=== PATIENT | male | born 1995 | race Caucasian/White ===

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

== ENCOUNTER 2017-06-24 01:40 | Emergency (ER) | payer OTHER ==
[~2017-06-24] VITALS: Ht 170.2 cm; Wt 65.0 kg
[~2017-06-24 01:40] MED LIST changes: +D-ME473S2 PO; +DICL100G37 TOP; +NAPR-260 PO; +PSEU30TA38 PO
[2017-06-24 01:43] VITALS: Ht 170.2 cm; Wt 65.0 kg
[2017-06-24] MEDS ORDERED: SULF1TAB31 PO (03:53)
[2017-06-24] MEDS ORDERED: CEPH-443 PO (03:53)
--- NOTE | 2017-06-24 04:12 | ERD ---
ER Documentation Chief Complaint Date/Time DATE: 06/24/17 TIME: 04:10 Chief Complaint rash to face for 4 days that is itchy HPI 22-year-old male presents to emergency department for complaints of rash itching bumps in the facial area after shaving 4 days ago. Patient complains of some pain, burning pain, 4/10 scale, accompanied with itching. Patient denies any fever or chills. Patient denies any discharge coming from the area. Patient denies any rash in other parts of the body. ROS All systems reviewed and are negative except as per history of present illness. Medications Home Meds Active Scripts Cephalexin* (Keflex*) 500 Mg Capsule, 500 MG PO QID for 10 Days, CAP Prov:TAYLOR GARCIA NP 06/24/17 Sulfamethoxazole/Trimethoprim* (Bactrim Ds* Tablet) 1 Each Tablet, 1 TAB PO BID , #20 TAB Prov:TAYLOR GARCIA NP 06/24/17 Fluticasone Propionate (Flonase Allergy Relief) 9.9 Ml [place].susp, 1 SPRAY NASAL DAILY, #1 BOTTLE TO EACH NOSTRIL Prov:ANGELA SIMPSON PA-C 11/03/16 Pseudoephedrine Hcl* (Pseudoephedrine Hcl*) 30 Mg Tablet, 30 MG PO Q6 Y for CONGESTION, #30 TAB Prov:ANGELA SIMPSON PA-C 11/03/16 Dextromethorphan Hb-Promethazine Hcl* (Promethazine DM* Syrup) 473 Ml Syrup, 5 ML PO Q6 Y for COUGH, #100 ML Prov:ANGELA SIMPSON PA-C 11/03/16 Diclofenac Sodium* (Voltaren* Gel) 1% -100 Gm Gel, 4 GM TOP QID, #1 TUB Prov:ANGELA SIMPSON PA-C 11/03/16 Naproxen* (Naprosyn*) 500 Mg Tablet, 500 MG PO BID Y for PAIN AND/OR INFLAMMATION, #30 TAB Prov:ANGELA SIMPSON PA-C 11/03/16 Fluticasone Propionate (Flonase Allergy Relief) 9.9 Ml [place].susp, 2 SPRAY NASAL DAILY, #1 BOTTLE TO EACH NOSTRIL Prov:PROUSE,NIKI Andrade PA-C 07/13/16 Guaifenesin-Dextromethorphan* (Robitussin* DM) 100MG/10MG/5ML Syrup, 10 ML PO Q4H Y for COUGH for 7 Days, ML Prov:ADELEKENNETHNIKIOLAYINKA [facility] 07/13/16 Cetirizine Hcl* (Zyrtec*) 10 Mg Capsule, 10 MG PO DAILY, #14 TAB.CHEW Prov:NIKI ANGULO PA-C 07/13/16 Azithromycin* (Zithromax*) 250 Mg Tablet, 250 MG PO .ZPACK DIRECTED, #6 TAB TAKE 500 MG (2 TABS) THE FIRST DAY THEN 250 MG (1 TAB) DAYS 2-5 Prov:NIKI ANGULO PA-C 07/13/16 Ibuprofen* (Motrin*) 600 Mg Tab, 600 MG PO Q6H Y for PAIN AND OR ELEVATED TEMP, #30 TAB Prov:CONNOR CHANEL MD 07/10/16 Allergies Allergies: Coded Allergies: No Known Drug Allergies (Verified Allergy, Mild, 07/13/16) PMhx/Soc Medical and Surgical Hx: pt denies Medical Hx, pt denies Surgical Hx History of Surgery: No Anesthesia Reaction: No Hx Neurological Disorder: No Hx Respiratory Disorders: No Hx Cardiac Disorders: No Hx Psychiatric Problems: No Hx Miscellaneous Medical Probl: No Hx Alcohol Use: No Hx Substance Use: No Hx Tobacco Use: No Smoking Status: Never smoker FmHx Family History: No coronary disease, No diabetes, No other Physical Exam Vitals Vital Signs Date Time Temp Pulse Resp B/P Pulse Ox O2 Delivery O2 Flow Rate FiO2 06/24/17 01:43 98.3 51 16 112/58 98 Physical Exam GENERAL: The patient is well developed and appropriate for usual state of health, in no apparent distress. CHEST: Clear to auscultation bilaterally. There are no rales, wheezes or rhonchi. HEART: Regular rate and rhythm. No murmurs, clicks, rubs or gallops. No S3 or S4. ABDOMEN: Soft, nontender and nondistended. Good bowel sounds. No rebound or guarding. No gross peritonitis. No gross organomegaly or masses. No Marin sign or McBurney point tenderness. BACK: No midline or flank tenderness. EXTREMITIES: Equal pulses bilaterally. There is no peripheral clubbing, cyanosis or edema. No focal swelling or erythema. Full range of motion. Grossly neurovascularly intact. NEURO: Alert and oriented. Cranial nerves 2-12 intact. Motor strength in all 4 extremities with 5/5 strength. Sensation grossly intact. Normal speech and gait. SKIN: Pustular rash noted in the lower chin area. There is no apparent ecchymosis or petechia. The skin is warm and dry. HEMATOLOGIC AND LYMPHATIC: There is no evidence of excessive bruising or lymphedema. No gross cervical, axillary, or inguinal lymphadenopathy. Procedures/MDM Medical decision making: Patient symptoms was likely is consistent with folliculitis. No symptoms of any abscess. No symptoms of impetigo. No symptoms of any other contagious rash at this time. Prescription was given for Bactrim, Keflex, was advised to follow-up with primary doctor in 2 days for reevaluation of symptoms. Patient is advised to return to emergency department for any worsening symptoms. Disposition: Home. Stable. Departure Diagnosis: Primary Impression: Folliculitis Condition: Stable Patient Instructions: FolliculTAYLOR Hwang NP Jun 24, 2017 04:12
== END 2017-06-24 04:12 | disposition home or self-care (01) ==
LOC: FTE 01:40
DX: L73.9 Follicular disorder, unspecified (principal)
CPT/HCPCS: 99284

== ENCOUNTER 2017-09-09 12:31 | Emergency (ER) | END 2017-09-09 15:38 | disposition home or self-care (01) ==